=== PATIENT | female | born 1995 | race Caucasian/White ===

== ENCOUNTER 2017-05-17 18:53 | Emergency (ER) | payer OTHER ==
[2017-05-17 19:01] VITALS: BP 128/74; PULSE 105; TEMP 99.8; BMI 31.6
--- NOTE | 2017-05-17 20:31 | PDOC ---
History of Present Illness - General Chief Complaint: Injury Stated Complaint: ANKLE INJURY Time Seen by Provider: 05/17/17 20:06 History Source: Patient Exam Limitations: No Limitations - History of Present Illness Initial Comments: 05/17/17 20:31 This is a 21-year-old female without significant medical history who presents to emergency department with left ankle pain status post inversion injury while walking on uneven terrain. Patient states she was walking in the park down some stairs made out of stone when she stepped on something uneven and inverted her ankle. At that time she felt a "pop". Patient was initially unable to bear weight but was able to bear weight within a couple of minutes. She denies any knee pain, fevers, chest pain shortness of breath, headaches, dizziness, abdominal pain, nausea vomiting, diarrhea, urinary symptoms. Occurred: reports: just prior to arrival Severity: reports: mild Pain Location: reports: none Modifying Factors: improves with: None Past History - Past Medical History Allergies/Adverse Reactions: Allergies Allergy/AdvReac Type Severity Reaction Status Date / Time pseudoephedrine HCl Allergy Rash Verified 05/17/17 19:01 [From [facility]] Home Medications: Ambulatory Orders NK [No Known Home Medication] 05/17/17 Other medical history: NONE - Suicide/Smoking/Psychosocial Hx Smoking History: Never smoked Hx Alcohol Use: Yes (SOCIAL) Drug/Substance Use Hx: No Review of Systems - Review of Systems Able to Perform ROS?: Yes Is the patient limited Nauruan proficient: No Musculoskeletal: Yes: See HPI All Other Systems: Reviewed and Negative *Physical Exam - Vital Signs Last Vital Signs Temp Pulse Resp BP Pulse Ox 99.8 F H 105 H 20 128/74 100 05/17/17 18:59 05/17/17 18:59 05/17/17 18:59 05/17/17 18:59 05/17/17 18:59 - Physical Exam General Appearance: Yes: Appropriately Dressed. No: Apparent Distress HEENT: positive: EOMI, NING, Normal ENT Inspection Neck: positive: Trachea midline, Supple Respiratory/Chest: positive: Lungs Clear, Normal Breath Sounds. negative: Chest Tender, Respiratory Distress, Accessory Muscle Use Cardiovascular: positive: Regular Rhythm, Regular Rate, S1, S2. negative: Edema , Murmur Vascular Pulses: Dorsalis-Pedis (R): 2+, Doralis-Pedis (L): 2+ Gastrointestinal/Abdominal: positive: Normal Bowel Sounds, Soft. negative: Tender Musculoskeletal: positive: Normal Inspection. negative: CVA Tenderness Extremity: positive: Normal Capillary Refill, Swelling (lateral aspect of left ankle. 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 Patient states she was walking in the park down some stairs made out of stone when she stepped on something uneven and inverted her ankle. At that time she felt a "pop". Patient was initially unable to bear weight but was able to bear weight within a couple of minutes. She denies any knee pain, fevers, chest pain shortness of breath, headaches, dizziness, abdominal pain, nausea vomiting, diarrhea, urinary symptoms. Patient is alert and oriented 3 and in no apparent distress. Respirations even and unlabored. Lungs clear to auscultation bilaterally. Regular rate and rhythm. S1 and S2 present no murmurs, rubs or gallop present. Bowel sounds presents. Abdomen soft nontender nondistended. Moves all extremities 4. 4-5 strength present in left ankle. 5 out of 5 strength in other joints. Large amount of swelling noted to lateral aspect of left ankle. [place] ankle rules are negative. Diagnosis-high ankle sprain Will defer x-rays at this time given negative [place] ankle rules. I will discharge patient with Ron wrap to left ankle, crutches, referral to orthopedist does not improve within the next 5 days. Patient instructed to take Motrin as needed for pain by following manufacturers instructions. Patient instructed take Tylenol in between Motrin doses to help with pain also. Patient instructed to elevate extremity at all times while not walking and to place ice on to affected extremity for 20 minutes at a time then to remove for 20 minutes and repeat as desired. *DC/Admit/Observation/Transfer Diagnosis at time of Disposition: High ankle sprain of left lower extremity Qualifiers: Encounter type: initial encounter Qualified Code(s): S93.432A - Sprain of tibiofibular ligament of left ankle, initial encounter; S93.432A - Sprain of tibiofibular ligament of left ankle, initial encounter - Discharge Dispostion Disposition: HOME Condition at time of disposition: Stable Admit: No - Referrals Referrals: Jose Clay MD [Staff Physician] - - Patient Instructions Additional Instructions: Take Tylenol or Motrin as needed for pain. Follow manufacturers instructions for dosage. Rest your leg. Elevate her left leg whenever you are not standing. Apply ice to affected area for 20 minutes and removed for a minimum of 20 minutes. If he Najma ice on your injury for longer than that you run the risk of causing frostbite. Exelon he'll be given a referral for orthopedist. If symptoms do not resolve within the next 5 days call orthopedist to make an appointment. Return to emergency department for inability to walk, severe pain, discoloration of your foot and toes, or any other concerns. Thank you very much for choosing us to provide your emergent healthcare needs.
== END 2017-05-17 20:46 | disposition home or self-care (01) ==
LOC: JERFT 18:53
DX: S93.492A Sprain of other ligament of left ankle, initial encounter (principal); W10.8XXA Fall (on) (from) other stairs and steps, initial encounter; Y93.89 Activity, other specified; Y92.830 Public park as the place of occurrence of the external cause; Y99.8 Other external cause status
CPT/HCPCS: 99281-25